=== PATIENT | male | born 1955 | race African-American/Black ===

== ENCOUNTER 2017-10-31 11:01 | Emergency (ER) | payer OTHER ==
[~2017-10-31] VITALS: Ht 177.8 cm; Wt 99.8 kg
[2017-10-31 11:01] VITALS: Ht 177.8 cm; Wt 99.8 kg
[2017-10-31 12:15] LABS: CALCIUM 8.7 mg/dL (8.5-10.1); CARBON DIOXIDE 25.9 mmol/L (21-32); CREATININE SERUM 1.6 mg/dL (0.7-1.3)
[2017-10-31 12:19] LABS: BILIRUBIN TOTAL 1.66 mg/dL (0.20-1.00); TOTAL PROTEIN, SERUM 7.5 g/dL (6.4-8.2)
[2017-10-31 12:20] LABS: ALBUMIN 2.9 g/dL (3.4-5.0)
[2017-10-31 12:28] LABS: BASOPHIL % 1.4 % (0-2)
[2017-10-31 12:32] LABS: PLATELET COUNT 105 x10^3mcL (130-400)
[2017-10-31 12:34] LABS: microscopic required? YES; urine erythrocyte NEGATIVE (NEGATIVE)
[2017-10-31 12:39] LABS: AMPHETAMINE QUAL UR NONE DETECTED (See below)
[2017-10-31 16:33] VITALS: BP 136/89
== END 2017-10-31 16:34 ==
LOC: ED 11:01
PROVIDERS: Specialist
DX: R56.9 Unspecified convulsions (principal); I10 Essential (primary) hypertension; Z86.73 Personal history of transient ischemic attack (TIA), and cerebral infarction without residual deficits; Z88.5 Allergy status to narcotic agent; Z88.8 Allergy status to other drugs, medicaments and biological substances; Z88.2 Allergy status to sulfonamides; Z88.1 Allergy status to other antibiotic agents
CPT/HCPCS: 36415; G0480; Q0092